=== PATIENT | female | born 1970 | race Caucasian/White ===

== ENCOUNTER → 2020-09-24 | Outpatient (CLI) | payer BC ==
[~2020-09-24] MED LIST: LORA-243 PO; PHEN30CA2 PO
== END ==
LOC: M LABSMTC 09:45
PROVIDERS: ATTEND Anesthesiology
DX: Z01.812 Encounter for preprocedural laboratory examination (principal); Z20.822 Contact with and (suspected) exposure to COVID-19

== ENCOUNTER 2020-09-29 08:46 | Observation (INO) | payer BC ==
[~2020-09-29] VITALS: Ht 162.6 cm; Wt 83.0 kg
[~2020-09-29 08:46] MED LIST changes: +ceFAZolin SOD 2 GM in IV 1 EA IV ONE
[2020-09-29] MEDS ORDERED: ROCURONIUM BROMIDE 50 MG/5 ML VIAL As Ordered ONE ×3 (10:09→14:13)
[2020-09-29] MEDS ORDERED: dexameTHASONE 4 MG/ML 1ML VIAL (J1100 PER 1MG) As Ordered ONE (10:09)
[2020-09-29] MEDS ORDERED: ONDANSETRON 4MG/2ML VIAL As Ordered ONE (10:09)
[2020-09-29] MEDS ORDERED: propofoL 200 MG/20 ML VIAL As Ordered ONE (10:09)
[2020-09-29] MEDS ORDERED: LIDOCAINE 2% 100MG/5ML SDV (FOR ANES.) As Ordered ONE (10:09)
[2020-09-29] MEDS ORDERED: fentaNYL 250 MCG/5 ML INJECTION (J3010) As Ordered ONE (10:09)
[2020-09-29] MEDS ORDERED: MIDAZOLAM INJ 2MG/2ML VIAL (J2250 PER 1MG) As Ordered ONE (10:10)
[2020-09-29] MEDS ORDERED: SCOPOLAMINE 1MG TRANSDERMAL PATCH TOP ONE (10:25)
[2020-09-29] MEDS ORDERED: LR 1,000 ML IV ONE (10:25)
[2020-09-29] MEDS ORDERED: SEVOFLURANE INHAL SOLN 250 ML BTL As Ordered ONE (11:11)
[2020-09-29] MEDS ORDERED: BUPIVACAINE LIPOSOME/PF 1.3% 20ML VIAL (13.3MG/ML)(EXPAREL)(C9290 PER1MG) As Ordered ONE ×2 (11:15→11:16)
[2020-09-29] MEDS ORDERED: ceFAZolin 1GM VIAL (J0690 PER 500MG) As Ordered ONE (11:45)
[2020-09-29] MEDS ORDERED: SUGAMMADEX SODIUM 500 MG/5 ML VIAL (BRIDION) As Ordered ONE (12:20)
[2020-09-29] MEDS ORDERED: ACETAMINOPHEN 1000MG 100ML IV BTL (OFIRMEV) (J0131 PER 10MG) As Ordered ONE (12:21)
[2020-09-29] MEDS ORDERED: HYDROmorphone HCL 2 MG/ML 1ML VIAL (J1170) As Ordered ONE (12:21)
[2020-09-29] MEDS ORDERED: LABETALOL 100MG/20ML VIAL As Ordered ONE (15:01)
--- NOTE | 2020-09-29 15:02 | POST-OPPD ---
Postoperative Procedure Note Date Of Procedure: Sep 29, 2020 PREOPERATIVE DIAGNOSIS: Bilateral breast hypertrophy POSTOPERATIVE DIAGNOSIS: same FINDINGS: Large breasts PROCEDURE: Bilateral breast reduction SURGEON: Dr Interiano ANESTHESIA: General SPECIMENS: Right breast 571 gm, Left breast 531 gm ESTIMATED BLOOD LOSS: 100 cc REPLACED: none DRAINS: 10 mm MAGAN x 2 COMPLICATIONS: none POSTOPERATIVE CONDITION: stable FIGUEROA INTERIANO DO Sep 29, 2020 15:02
--- NOTE | 2020-09-29 15:03 | ROOPDOC ---
[facility] Report Of Operation Report of Operation DATE OF PROCEDURE: 09/29/20 PREOPERATIVE DIAGNOSIS: Bilateral breast hypertrophy POSTOPERATIVE DIAGNOSIS: same FINDINGS: Large breasts PROCEDURE: Bilateral breast reduction SURGEON: Dr Interiano ANESTHESIA: General SPECIMENS: Right breast 571 gm, Left breast 531 gm ESTIMATED BLOOD LOSS: 100 cc REPLACED: none DRAINS: 10 mm MAGAN x 2 COMPLICATIONS: none POSTOPERATIVE CONDITION: stable DESCRIPTION OF PROCEDURE: This is a 50-year-old female who upper back and neck pain worsened by large breasts. She is scheduled for bilateral breast reduction. Risks, benefits, and alternatives were discussed with the patient in detail, and she is ready to proceed. The day of surgery, she was marked in the upright position and informed consent was obtained. She measured 36 cm from sternal notch to nipple on both sides, IMF at 22 cm bilaterally. She was brought into the operating room and placed in the supine position. Preoperative antibiotics and 5000 units heparin subcutaneous were given. Sequential pneumatic stocking were placed on the lower calves. General anesthesia was induced. She was prepped and draped in the usual sterile fashion. We started our procedure on the right side. Her nipple areolar complex was outlined 45 mm in diameter, and the patient was marked according superior medial pedicle. We started our incision by scoring the nipple areolar complex area, and then dissection was continued until the inferior lateral portion of the breast was resected. Hemostasis was obtained using electrocautery. The pedicle was de- epithelialized using Abraham scissors, good perfusion to the nipple at all times. Wound was irrigated with Bacitracin solution. We used Exparel 6 cc for local anesthesia to infiltrate in the Pectoralis muscle as well as the breast tissue. Tissel was spray over the wound for additional hemostasis. Than pedicle was turned superior to its new location at 22 cm from sternal notch. The mound was re-created using conforming 0 Vicryl sutures. Pillars were closed with interrupted 3-0 Monocryl sutures. The vertical limb was 8.5 cm. Excess tissue inferiorly was measured and resected, creating the horizontal scar. Nipple area complex was brought into view through the new opening and sutured in place with 3-0 and 4-0 Monocryl sutures and a 5-0 plain. A 10 mm Freddy-Tenorio drain was placed through the lateral portion of the horizontal incision. Then we turned our attention to the left side. Mirror procedure was carried out. Again, resection was done according to superior-medial pedicle using electrocautery and PEEK cautery. Hemostasis was obtained. The pedicle was in good viable condition. Exparel was infiltrated through the pectoralis muscle and the breast tissue 6 cc. Than pedicle was turned superior to its new location at 22 cm from sternal notch. The mound was re-created using conforming 0 Vicryl sutures. Pillars were closed with interrupted 3-0 Monocryl sutures. The vertical limb was 8.5 cm. Excess tissue inferiorly was measured and resected, creating the horizontal scar. Nipple area complex was brought into view through the new opening and sutured in place with 3-0 and 4-0 Monocryl sutures and a 5-0 plain gut suture in interrupted fashion. A 10 mm Freddy-Tenorio drain was placed through the lateral portion of the horizontal incision. Remaining Exparel injected in the horizontal incision. Total Exparel use 20 cc. Resected tissue sent to pathology in two specimens right and left breast tissue. Right breast 571 grams, left breast 531 grams. Dressings were applied to vertical and horizontal incision: Prineo. Nipples areolar complex: Xeroform and a bulky dressing with a surgical bra. Patient was extubated in the operating room without difficulty and was transferred to the recovery room in stable condition. FIGUEROA INTERIANO DO Sep 29, 2020 15:03
[2020-09-29] MEDS: LR 1,000 ML IV SCH (15:05)
[2020-09-29] MEDS ORDERED: ACETAMINOPHEN TAB 650MG DOSE (2X325MG) PO PRN (15:05)
[2020-09-29] MEDS ORDERED: ONDANSETRON 4MG/2ML VIAL IV PRN ×2 (15:05→15:30)
[2020-09-29] MEDS ORDERED: fentaNYL 100 MCG/2 ML INJECTION (J3010) IV PRN (15:30)
[2020-09-29] MEDS ORDERED: oxyCODONE 5MG TAB PO PRN (15:30)
[2020-09-29] MEDS ORDERED: LR 1,000 ML IV SCH (15:30)
[2020-09-29] MEDS: KETOROLAC TROMETHAMINE 10 MG TAB PO PRN (16:32)
[2020-09-29 16:33] VITALS: BP 145/84
[2020-09-29 17:00] VITALS: BP 141/83
[2020-09-29] MEDS: PERCOCET 5MG/325MG TAB PO PRN ×2 (17:58→22:05)
[2020-09-29 18:00] VITALS: BP 140/82
[2020-09-29 18:50] VITALS: BP 142/80
[2020-09-29 19:53] VITALS: BP 140/81
[2020-09-29 20:47] VITALS: BP 142/70
[2020-09-29] MEDS: ceFAZolin SOD 1 GM in D5W MINI-BAG PLUS 50 ML IV SCH (22:04)
[2020-09-30 01:42] VITALS: BP 139/70
[2020-09-30] MEDS: ceFAZolin SOD 1 GM in D5W MINI-BAG PLUS 50 ML IV SCH ×2 (04:59→12:03)
[2020-09-30] MEDS: LR 1,000 ML IV SCH (04:59)
[2020-09-30] MEDS: KETOROLAC TROMETHAMINE 10 MG TAB PO PRN (05:03)
[2020-09-30 05:24] VITALS: BP 115/68
[2020-09-30] MEDS: PERCOCET 5MG/325MG TAB PO PRN ×2 (08:40→12:04)
--- NOTE | 2020-09-30 13:53 | IPNPDOC ---
Subjective General Date Seen: Sep 30, 2020 Subject Chief Complaint/History The patient is a 50-year-old female admitted with a reason for visit of Bilateral Breast Hypertrophy. Patient is status post breast reduction postop day 1. She is doing well, ambulating, tolerating diet, pain controlled. Current Medications Current Medications Current Medications Medications (Trade) Dose Ordered Sig/Jazz Route PRN Reason Start Time Stop Time Status Last Admin Dose Admin Acetaminophen (Tylenol Tab) 650 mg Q6H PRN PO MILD PAIN (PS 1-4) 09/29/20 15:05 Cefazolin Sodium 1 gm/Dextrose 50 ml @ 100 mls/hr Q8H IV 09/29/20 20:00 09/30/20 12:03 Fentanyl Citrate (Sublimaze) 25 mcg Q5MP PRN IV PAIN LEVEL 5-10 09/29/20 15:30 09/29/20 17:30 DC Ketorolac Tromethamine (ToRADol) 10 mg Q6HP PRN PO MODERATE PAIN (PS 5-7) 09/29/20 15:05 10/04/20 15:04 09/30/20 05:03 Lactated Ringer's 1,000 ml @ 75 mls/hr [id number] IV 09/29/20 15:05 09/30/20 04:59 Lactated Ringer's 1,000 ml @ 80 mls/hr [id number] IV 09/29/20 15:30 09/29/20 17:30 DC Ondansetron HCl (ZOFRAN INJection) 4 mg Q4H PRN IV NAUSEA OR VOMITING 09/29/20 15:05 09/30/20 08:40 Ondansetron HCl (ZOFRAN INJection) 4 mg Q4HP PRN IV NAUSEA OR VOMITING 09/29/20 15:30 09/29/20 17:30 DC 09/29/20 16:31 Oxycodone HCl (Roxicodone, Oxyir) 5 mg ASDIRECTED PRN PO PAIN LEVEL 1-4 09/29/20 15:30 09/29/20 17:30 DC 09/29/20 16:02 Oxycodone/ Acetaminophen (Percocet 5mg/ 325mg Tablet) 2 tab Q4HP PRN PO PAIN LEVEL 8-10 09/29/20 15:05 09/30/20 12:04 Allergies Coded Allergies: morphine (Verified Adverse Reaction, Mild, vomiting, 09/21/20) topiramate (Verified Adverse Reaction, Mild, GI upset, 09/21/20) Objective Physical Examination Examination GENERAL APPEARANCE:Patient seen, laying in bed, awake, alert, and oriented. Comfortable, in no acute distress. SKIN: Warm and moist. BREAST: Right and left soft, non-tender incisions intact. MAGAN drains: 30/30 cc/24 hr. NAC: Viable, warm, symmetrical, mild post-op ecchymosis, no expanding hematoma. LUNGS: Clear to auscultation bilaterally. No wheezing appreciated. HEART: No chest wall abnormalities. Regular rate and rhythm with no murmurs appreciated. ABDOMEN: Abdomen is soft, non-tender, non-distended. EXTREMITIES: No edema identified. No calf tenderness. Vital Signs Vital Signs Date Time Temp Pulse Resp B/P (MAP) Pulse Ox O2 Delivery O2 Flow Rate FiO2 09/30/20 12:04 18 Room Air 09/30/20 05:24 98.8 50 115/68 (84) 96 09/29/20 15:20 2.0 I&Os I&O- Last 24 Hours up to 6 AM 09/30/20 06:00 Intake Total 6130 ml Output Total 1380 ml Balance 4750 ml Impression Status post bilateral breast reduction. Stable for discharge. Dressing change today, her MAGAN drains minimal drainage. Instructions for home care given. Follow-up with plastic surgery. Plan / VTE VTE Prophylaxis Ordered?: Yes FIGUEROA INTERIANO DO Sep 30, 2020 13:52
[2020-09-30] MEDS ORDERED: PERCOCET PO (13:55)
[2020-09-30 14:00] VITALS: BP 133/74
== END 2020-09-30 14:36 | disposition home or self-care (01) ==
LOC: M SDC 08:46 → M MS5PR 15:08 → M SDC 09-30 14:36
PROVIDERS: ADMIT Plastic Surgery Surgery of the Hand; ATTEND Plastic Surgery Surgery of the Hand
DX: N62 Hypertrophy of breast (principal); M10.9 Gout, unspecified; K21.9 Gastro-esophageal reflux disease without esophagitis; E04.1 Nontoxic single thyroid nodule; Z79.899 Other long term (current) drug therapy; Z88.5 Allergy status to narcotic agent; Z88.8 Allergy status to other drugs, medicaments and biological substances
CPT/HCPCS: 19318; 88305; 96365; 96366; 96375; 96376; C9290; J0131; J0690; J1100; J1170; J2250; J2405; J3010

== ENCOUNTER 2023-01-29 06:20 | Day surgery (SDC) | payer BC ==
[~2023-01-29] VITALS: Ht 162.6 cm; Wt 78.5 kg
[~2023-01-29 06:20] MED LIST changes: +AIRB1CHW3 PO; +FLON1SPR; +GOOD200C PO; +LR 1,000 ML IV SCH; +OMEP1CAP73 PO; +PERCOCET PO; -PHEN30CA2 PO; +PHEN30CA21 PO; +SEMA1.7P SQ; +[UNRECOGNIZED DRUG - REMARK] PO
[2023-01-29] MEDS ORDERED: LIDOCAINE 2% 100MG/5ML SDV (FOR ANES.) As Ordered ONE (07:56)
[2023-01-29] MEDS ORDERED: fentaNYL 100 MCG/2 ML INJECTION As Ordered ONE (07:56)
[2023-01-29] MEDS ORDERED: propofoL 200 MG/20 ML VIAL As Ordered ONE ×2 (07:56→08:10)
[2023-01-29] MEDS ORDERED: MIDAZOLAM INJ 2MG/2ML VIAL As Ordered ONE (07:56)
[2023-01-29] MEDS ORDERED: ONDANSETRON 4MG 2ML VIAL As Ordered ONE (07:56)
[2023-01-29] MEDS ORDERED: METOCLOPRAMIDE INJ 10MG/2ML VIAL As Ordered ONE (07:56)
[2023-01-29] MEDS ORDERED: ACETAMINOPHEN 1000MG 100ML IV BAG As Ordered ONE (07:57)
[2023-01-29] MEDS ORDERED: SCOPOLAMINE 1MG TRANSDERMAL PATCH As Ordered ONE (08:01)
[2023-01-29] MEDS ORDERED: oxyCODONE 5MG TAB PO PRN (08:50)
[2023-01-29] MEDS ORDERED: fentaNYL 100 MCG/2 ML INJECTION IV PRN (08:50)
[2023-01-29] MEDS ORDERED: ONDANSETRON 4MG 2ML VIAL IV PRN (08:50)
[2023-01-29 09:58] VITALS: BP 129/73; TEMP 97; O2SAT 95
== END 2023-01-29 09:58 | disposition home or self-care (01) ==
LOC: M SDC 06:20
PROVIDERS: ATTEND Plastic Surgery Surgery of the Hand
DX: D17.21 Benign lipomatous neoplasm of skin and subcutaneous tissue of right arm (principal); M10.9 Gout, unspecified; E04.0 Nontoxic diffuse goiter; K21.9 Gastro-esophageal reflux disease without esophagitis; R51.9 Headache, unspecified; Z79.899 Other long term (current) drug therapy; Z88.5 Allergy status to narcotic agent
CPT/HCPCS: 11406; 12032; 88304; C9290; J0131; J0665; J0690; J1100; J2250; J2405; J2765; J3010